=== PATIENT | male | born 1990 | race Caucasian/White ===

== ENCOUNTER 2019-07-06 16:05 | Emergency (ER) | payer OTHER, SELFPAY ==
[2019-07-06 16:07] VITALS: BP 125/66; PULSE 71; RESP 16; TEMP 37.2; O2SAT 98; BMI 23.7
--- NOTE | 2019-07-06 16:31 | ED.DCSUM_ITS ---
History of Present Illness Chief Complaint: Foreign Body Informant: Patient Onset: Today Mechanism/Context: Puncture Wound, Work Related Narrative: Patient is a 29-year-old male with no past medical history presenting with a foreign body in his neck. Patient was using an air chisel at work when a piece of metal bounced up and hit him in the center of his neck right above his sternum. He does not have significant pain. He was able to use a magnet that he had to tell that it was metal because it connects to it. His last tetanus was in 2012. He denies any other complaints or injuries. He was wearing safety glasses and safety mask at the time. 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 Denies: Rash Neurological: Denies: Headache, Weakness, Numbness Physical Exam Vital Signs/Narrative: Vital Signs Temp Pulse Resp BP Pulse Ox 07/06/19 16:07 98.9 F 71 16 125/66 H 98 Inital Vital Signs reviewed: Yes General: Well nourished, Well developed Head: Normocephalic, Atraumatic Eyes: Perrl, EOMI ENT: No trauma Neck: Nontender, Full ROM, - - 5 mm laceration the base of the neck just above the sternal notch with superficial metallic foreign body that is palpated and partially seen. No subcu air appreciated. No bubbles noted from the wound. Cardiovascular: Regular rate, Regular rhythm, No murmurs Respiratory: No distress, CTA bilaterally, Chest nontender Abdomen: Soft, Nontender, Nondistended Skin: Normal color, No rash, Trauma - 5 mm foreign body with associated laceration at the base of the anterior neck Neurological: Alert, Oriented x3, Cranial nerves II-XII grossly intact, Normal Strength, Normal Sensation Psychological: Normal affect Diagnostic/Tx/Re-eval - Medical Decision Making Patient is a superficial foreign body in his anterior neck. It does not seem to violate the platysma's. I do not think imaging is indicated I think this wound is superficial. 0.5 cc of lidocaine was used to locally infiltrate the area and then 18-gauge needle is used to get behind the foreign body and pushed out. Patient tolerated procedure well with no immediate complications. Minimal bleeding. Wound is then irrigated and cleansed with sterile saline and Hibiclens. Tetanus is updated. Workmen's Compensation paperwork is filed. Patient is counseled on signs and symptoms requiring return to the emergency room. Patient verbalizes agreement and understand this plan. Patient discharged home in stable and improved condition. Procedures Procedure(s): Foreign body removal. Area anesthetized with 2% lidocaine. 18- gauge needle is then used to get behind the foreign body and push it out. The wound did not need to be opened further or extended. No further foreign bodies palpated. Wound is then cleansed and bandaged. No immediate complications. ED Disposition - Plan for ED Patient: Disposition: Home or Assisted Living Diagnosis: Foreign body of neck, superficial Instructions: FOREIGN BODY, Soft Tissue [Removed] Referrals: [facility] [GROUP OF PHYSICIANS] -
[2019-07-06] MEDS: Diphth,Pertuss(Acell),Tet Vac 0.5 ML Vial IM (16:43)
== END 2019-07-06 17:15 | disposition home or self-care (01) ==
PROVIDERS: Emergency Provider Emergency Medicine
DX: S10.95XA Superficial foreign body of unspecified part of neck, initial encounter (principal); W22.8XXA Striking against or struck by other objects, initial encounter; Y92.89 Other specified places as the place of occurrence of the external cause; Y99.0 Civilian activity done for income or pay; Z87.891 Personal history of nicotine dependence
CPT/HCPCS: 10120; 90471; 90715; 99282